=== PATIENT | female | born 1995 | race Hispanic/Latino ===

== ENCOUNTER 2016-05-07 10:05 | Emergency (ER) | payer OTHER ==
[~2016-05-07] VITALS: Ht 165.1 cm; Wt 111.6 kg
[~2016-05-07 10:05] MED LIST: ALBUTEROL2.5 MG/3 M INH/SOL; AUGMENTIN 875 M1 TAB PO; DICLOFENAC SODI75 M2 PO; FLOVENT HFA10.6 GM INH; HYDROCORTISONE120 GM TOP; KEPPRA 500MG T500 MG PO; MOTRIN 800MG T800 MG PO; NAPROSYN500 M1 PO; OVCON PO; PERCOCET 325 MG1 TA2 PO; PNV PRENATAL PL1 TAB PO; PRENATAL1 TA2 PO; PROVENTIL0.09 MG/A1 INH; PSEUDOEPHEDRINE60 MG PO
[2016-05-07 10:11] VITALS: BP 133/78
--- NOTE | 2016-05-07 10:15 | ED GI/GU/ABDOMINAL COMPLAINT ---
History of Present Illness General Chief Complaint: Abdominal Pain/Flank Pain Stated Complaint: ABD PAIN, ? Source: patient Exam Limitations: no limitations Vital Signs & Intake/Output Vital Signs & Intake/Output Vital Signs Date Time Temp Pulse Resp B/P Pulse O2 O2 Flow FiO2 Ox Delivery Rate 05/07 1039 99 Room Air 05/07 1011 96.9 96 18 133/78 97 Room Air Room Air Allergies Coded Allergies: lamotrigine (Intermediate, RASH 07/30/15) cat dander (ITCHY EYES 10/05/15) dog dander (ITCHY EYES 10/05/15) shellfish derived (RED AND FACIAL SWELLING, CAN STILL BREATHE 10/05/15) Reconcile Medications Albuterol Sulfate 2.5 MG/3 ML VIAL.NEB 1 Vial INH/OLYA Q4P PRN ASTHMA Diclofenac Sodium 75 MG TABLET.DR 1 TAB PO BID PRN PAIN Fluticasone Propionate (Flovent Hfa) 10.6 GM AER.W.ADAP 2 PUF INH BID ASTHMA Levetiracetam (Keppra 500MG Tab) 500 MG TAB 1,000 MG PO 0800,2200 SEIZURES Pseudoephedrine HCl 60 MG TABLET 1 TAB PO TID PRN NASAL CONGESTION Triage Note: TRIAGE: 20 Y/O FEMALE PRESENTS C/O ? AND 3/10 TWISTING MID-ABDOMINAL PAIN X1 WEEK. REPORTS TOOK 2 NEGATIVE TESTS AT HOME. REPORTS THAT WITH LAST , "I HAD 2 NEGATIVE TESTS ADN I WAS STILL . IT FEELS LIKE THERE'S SOMETHING IN THERE MOVING, BUT I CAN'T PUT MY FINGER ON WHAT IT IS." Triage Nurses Notes Reviewed? yes ? N Is pt currently ? No HPI: 20-year-old female arrived to triage to room 4 for evaluation of abdominal pain. She reports that the pain started about 2 weeks ago on specific context. Twisting sensation in her abdomen that his very intermittent. She reports that she feels it more when she is laying down flat. Some nausea intermittently but no vomiting or diarrhea. She denies fever or chills. Her last meal was last night along with her last bowel movement which she reports has been normal. She has been eating and drinking well. Her last menses was 2 weeks before Nona. She denies any vaginal bleeding or discharge. She denies any urinary symptoms. She is sexually active with one partner and her first child is 1 years old at this time. She believes she might be despite 2 negative tests at home. She does not have any abdominal pain at this time Past History Travel History Traveled to [place] past 21 day No Medical History Any Pertinent Medical History? see below for history Neurological: EPILEPSY EENT: NONE Cardiovascular: NONE Respiratory: asthma Gastrointestinal: NONE Hepatic: NONE Renal: NONE Musculoskeletal: ECZEMA Psychiatric: NONE Endocrine: NONE Blood Disorders: NONE Cancer(s): NONE TECHNICAL SUPPORT ENGINEER/Reproductive: NONE Other Medical Hx: Surgical History Surgical History: Psychosocial History Who do you live with Other (see notes) What is your primary language Lithuanian Tobacco Use: Never used ETOH Use: denies use Illicit Drug Use: denies illicit drug use Family History Hx Contributory? No Review of Systems Review of Systems Constitutional: Reports: no symptoms. EENTM: Reports: no symptoms. Respiratory: Reports: no symptoms. Cardiovascular: Reports: no symptoms. GI: Reports: abdominal pain, nausea. Genitourinary: Reports: no symptoms. Musculoskeletal: Reports: no symptoms. Skin: Reports: no symptoms. Neurological/Psychological: Reports: no symptoms. Hematologic/Endocrine: Reports: no symptoms. Immunologic/Allergic: Reports: no symptoms. All Other Systems: Reviewed and Negative Physical Exam Physical Exam General Appearance: well developed/nourished, no apparent distress, alert, awake , comfortable Head: atraumatic, normal appearance Eyes: Bilateral: normal appearance, PERRL, EOMI. Neck: normal inspection, supple, full range of motion Respiratory: normal breath sounds, chest non-tender, no respiratory distress Cardiovascular: regular rate/rhythm, normal peripheral pulses Peripheral Pulses: 2+ radial (R), 2+ radial (L) Gastrointestinal: normal bowel sounds, soft, non-tender Back: normal inspection, normal range of motion Extremities: normal range of motion Neurologic/Psych: no motor/sensory deficits, awake, alert, oriented x 3, normal gait, normal mood/affect Skin: intact, normal color, warm/dry Core Measures ACS in differential dx? No Severe Sepsis Present: No Septic Shock Present: No Progress Differential Diagnosis: UTI/pyelo, Plan of Care: Orders Procedure Date/time Status CULTURE,URINE 05/07 1015 Active URINALYSIS 05/07 1015 Complete LIPASE 05/07 1015 Complete HUMAN BETA HCG SCREEN 05/07 1015 Complete COMPREHENSIVE METABOLIC PANEL 05/07 1015 Complete CBC WITHOUT DIFFERENTIAL 05/07 1015 Complete AMYLASE 05/07 1015 Complete Laboratory Tests 05/07/16 1035: Anion Gap 13, Estimated GFR > 60, BUN/Creatinine Ratio 15.0, Glucose 84, Calcium 9.1, Total Bilirubin 0.7, AST 36, ALT 54 H, Alkaline Phosphatase 57, Total Protein 7.5, Albumin 4.0, Globulin 3.5, Albumin/Globulin Ratio 1.1, Amylase < 30 L, Lipase 38, Total Beta HCG NEGATIVE, CBC w Diff NO MAN DIFF REQ, RBC 4.55, MCV 77.3 L, MCH 25.7 L, RDW 16.0 H, MPV 9.3, Gran % 59.1, Lymphocytes % 24.8, Monocytes % 11.2 H, Eosinophils % 4.0, Basophils % 0.9, Absolute Granulocytes 5.1, Absolute Lymphocytes 2.1, Absolute Monocytes 1.0 H, Absolute Eosinophils 0.3, Absolute Basophils 0.1, PUBS MCHC 33.3, Urinalysis MOD H, Urine Color YEL, Urine Clarity HAZY H, Urine pH 6.0, Ur Specific Hudson 1.020, Urine Protein NEG, Urine Ketones NEG, Urine Nitrite NEG, Urine Bilirubin NEG, Urine Urobilinogen 0.2, Ur Leukocyte Esterase SMALL H, Ur Microscopic SEDIMENT EXAMINED, Urine WBC 1-3 H, Ur Epithelial Cells MANY H, Urine Hemoglobin NEG, Urine Glucose NEG Microbiology 05/07 1035 URINE ROUT: Urine Culture - RECD Initial ED EKG: none Comments: Well-appearing nontoxic 20-year-old female with no abdominal pain no nausea no vomiting no diarrhea eating and drinking well, no fever or chills not no signs of infection. She will follow up with Dr. Jaramillo on this week. Case discussed with Dr. Rosario Departure Departure Time of Disposition: 113 Disposition: HOME OR SELF CARE Condition: Stable Clinical Impression Primary Impression: Abdominal pain Qualifiers: Abdominal location: generalized Qualified Code: R10.84 - Generalized abdominal pain Referrals: THELMA JARAMILLO MD (PCP/Family) Additional Instructions: Please follow up with Dr. JARAMILLO this week. Return to the emergency department for any worsening or concerning symptoms. Return of abdominal pain, nausea, vomiting, diarrhea, fever or chills. Departure Forms: Customer Survey General Discharge Information
[2016-05-07 10:52] LABS: ABSOLUTE BASOPHIL COUNT 0.1 /CUMM (0.0-0.2); ABSOLUTE EOSINOPHIL COUNT 0.3 /CUMM (0.0-0.7); ABSOLUTE GRANULOCYTE CT 5.1 /CUMM (1.4-6.5); ABSOLUTE LYMPH COUNT 2.1 /CUMM (1.2-3.4); BASOPHIL % 0.9 % (0.0-2.0); GRANULOCYTE % 59.1 % (42.2-75.2); HEMATOCRIT 35.2 % (37-47); MEAN CORPUSCULAR HGB 25.7 PG (27.0-31.0); MEAN CORPUSCULAR HGB CONC 33.3 G/DL (33.0-37.0); MEAN CORPUSCULAR VOLUME 77.3 FL (81.0-99.0); MEAN PLATELET VOLUME 9.3 FL (7.4-10.4); PLATELET COUNT 269 /CUMM (130-400); RED BLOOD CELL CT 4.55 /CUMM (4.20-5.40); WHITE BLOOD CELL COUNT 8.6 /CUMM (4.8-10.8)
== END 2016-05-07 11:46 ==
LOC: ERH 10:05
PROVIDERS: Nurse Practitioner Family
DX: R10.9 Unspecified abdominal pain (principal)
CPT/HCPCS: 81001; 87086

== ENCOUNTER 2016-05-25 18:32 | Emergency (ER) | payer OTHER ==
[~2016-05-25] VITALS: Ht 165.1 cm; Wt 99.8 kg
[2016-05-25 18:55] VITALS: BP 131/73
--- NOTE | 2016-05-25 19:30 | ED THROAT/DENTAL COMPLAINT ---
History of Present Illness General Chief Complaint: General Adult Stated Complaint: SORE THROAT DAVIS DIZZINESS HX SEIZURES Source: patient, family, old records Exam Limitations: no limitations Vital Signs & Intake/Output Vital Signs & Intake/Output Vital Signs Date Time Temp Pulse Resp B/P Pulse O2 O2 Flow FiO2 Ox Delivery Rate 05/25 1950 100 Room Air 05/25 1855 98.0 117 20 131/73 98 Room Air Room Air Allergies Coded Allergies: lamotrigine (Intermediate, RASH 07/30/15) cat dander (ITCHY EYES 10/05/15) dog dander (ITCHY EYES 10/05/15) shellfish derived (RED AND FACIAL SWELLING, CAN STILL BREATHE 10/05/15) Reconcile Medications Albuterol Sulfate 2.5 MG/3 ML VIAL.NEB 1 Vial INH/OLYA Q4P PRN ASTHMA Amoxicillin/Potassium Clav (Augmentin 875-125 Tablet) 875 MG-125 MG TABLET 1 TAB PO BID STREP PHARYNGITIS Diclofenac Sodium 75 MG TABLET.DR 1 TAB PO BID PRN PAIN Fluticasone Propionate (Flovent Hfa) 10.6 GM AER.W.ADAP 2 PUF INH BID ASTHMA Ibuprofen 800 MG TABLET 1 TAB PO TID PAIN Levetiracetam (Keppra 500MG Tab) 500 MG TAB 1,000 MG PO 0800,2200 SEIZURES Pseudoephedrine HCl 60 MG TABLET 1 TAB PO TID PRN NASAL CONGESTION Triage Note: PT TO ED WITH C/O SORE THROAT X 2 DAYS, TAKING LIQUIDS OK, "HURTS WHEN I EAT". Triage Nurses Notes Reviewed? yes Onset: Abrupt Duration: day(s): (2), constant Timing: recent history Injury Environment: home Severity: moderate Severity Numbers: 5 No Modifying Factors: none Associated Symptoms: DENIES : No Patient currently breastfeeds: No HPI: 20-year-old female with history of epilepsy on Keppra presents emergency room for evaluation complaining with sore throat for the past 2 days worse with swallowing associated with subjective chills fevers for which she is not taken any medication. She denies any recent dental work no cough congestion shortness of breath chest pain nausea vomiting or diarrhea. No modifying factors or associated symptoms otherwise (PETEY DUPREE,MARTÍNEZ) Past History Travel History Traveled to [place] past 21 day No Medical History Any Pertinent Medical History? see below for history Neurological: EPILEPSY EENT: NONE Cardiovascular: NONE Respiratory: asthma Gastrointestinal: NONE Hepatic: NONE Renal: NONE Musculoskeletal: ECZEMA Psychiatric: NONE Endocrine: NONE Blood Disorders: NONE Cancer(s): NONE PHARMACEUTICAL SALES/Reproductive: NONE Other Medical Hx: Surgical History Surgical History: Psychosocial History Who do you live with Other (see notes) What is your primary language Hungarian Tobacco Use: Never used ETOH Use: denies use Illicit Drug Use: denies illicit drug use Family History Hx Contributory? No (MARTÍNEZ BO) Review of Systems Review of Systems Constitutional: Reports: see HPI. All Other Systems: Reviewed and Negative Comments Review of systems: See HPI, All other systems negative. Constitutional,chills no fever, no malaise HEENT: No visual changes sore throat no congestion Cardiovascular: No chest pain , no palpitation Skin, no jaundice no rashes, no change in skin Respiratory: No dyspnea no cough no sputum GI: No nausea no vomiting, no diarrhea, : No dysuria Muscle skeletal: No joint pain, no joint swelling, no back pain, no neck pain, Neurologic: No numbness no headache Psych: No stress Heme/endocrine: No bruising no bleeding IMMUNO: NO LYMPHADENOPATHY (MARTÍNEZ BO) Physical Exam Physical Exam General Appearance: well developed/nourished, no apparent distress, alert, awake Mouth/Throat: PHARYNX ERYTHEMA Comments: Well-developed well-nourished patient in no apparent distress. Head/Face: Atraumatic, no maxillary/frontal sinus tenderness, no facial swelling Eyes: PERRL, EOMI, no conjunctival injection. No nystagmus Ear:External auditory canal and Tympanic membranes clear, no erythema, no FB. Nose: atraumatic.Normal inspection: No bleeding, no septal hematoma Throat: Moist mucous membranes.pharynx is erythematous no exudate no trismus. No stridor/drooling or assymetry. No swelling or edema. Neck: Supple, no lymphadenopathy, FROM Back: FROM, Nontender Cardiovascular: Regular rate and rhythms no murmurs rubs Respiratory: No respiratory distress. Patient speaking in full complete sentences. Breath sounds clear to auscultation bilaterally: NO W/R/R Extremities: full range of motion Neuro: Alert and oriented x3 Skin: Warm & dry;No appreciable rash on exposed skin Psych: Mood affect normal, normal memory normal judgment. Core Measures ACS in differential dx? No Severe Sepsis Present: No Septic Shock Present: No (MARTÍNEZ BO) Progress Differential Diagnosis: epiglottitis, Ludwigs angina, odontogenic abscess, alysia- tonsillar abscess, strep pharyngitis, uri VIRAL SYNDROME INFLUENZA Plan of Care: Orders Procedure Date/time Status THROAT CULTURE W/QUICK STREP 05/25 1856 Complete Discussed with the patient her flu swab results she is nontoxic appearing appears in no apparent distress speaking in full complete sentences NO drooling discussed with her need for close follow-up with her primary care physician prescription for Augmentin provided, answered all her questions she feels comfortable this plan (MARTÍNEZ BO) Departure Departure Time of Disposition: 1938 Disposition: HOME OR SELF CARE Condition: Stable Clinical Impression Primary Impression: Strep pharyngitis Referrals: THELMA WAITE MD (PCP/Family) Additional Instructions: Augmentin as directed ibuprofen as needed for pain drink plenty of fluids these prescriptions were sent to [facility] pharmacy Departure Forms: Customer Survey General Discharge Information Prescriptions: Current Visit Scripts Amoxicillin/Potassium Clav (Augmentin 875-125 Tablet) 1 TAB PO BID #14 TAB Ibuprofen 1 TAB PO TID #30 TAB (MARTÍNEZ BO) PA/BRUSH MAKER Co-Sign Statement Statement: ED Attending supervision documentation- [] I saw and evaluated the patient. I have also reviewed all the pertinent lab results and diagnostic results. I agree with the findings and the plan of care as documented in the PA's/BRUSH MAKER's documentation. [X] I have reviewed the ED Record and agree with the PA's/BRUSH MAKER's documentation. [] Additions or exceptions (if any) to the PAs/BRUSH MAKER's note and plan are summarized below: [] (ILA GODFREY,CARYN)
[2016-05-25] MEDS ORDERED: IBUPROFEN800 M1 PO (19:40)
[2016-05-25] MEDS ORDERED: AUGMENTIN 875-1 EACH PO (19:40)
== END 2016-05-25 19:52 ==
LOC: ERH 18:32
DX: J02.0 Streptococcal pharyngitis (principal)

== ENCOUNTER 2016-09-14 10:51 | Emergency (ER) | payer OTHER ==
[~2016-09-14] VITALS: Ht 165.1 cm; Wt 107.5 kg
[~2016-09-14 10:51] MED LIST changes: +AUGMENTIN 875-1 EACH PO; +IBUPROFEN800 M1 PO
--- NOTE | 2016-09-14 11:30 | ED GI/GU/ABDOMINAL COMPLAINT ---
History of Present Illness General Chief Complaint: Female Urogenital Problems Stated Complaint: HEAVY VAG BLEEDING/CRAMPS S/P ABORATION SAT Source: patient Exam Limitations: no limitations Vital Signs & Intake/Output Vital Signs & Intake/Output Vital Signs Date Time Temp Pulse Resp B/P B/P Pulse O2 O2 Flow FiO2 Mean Ox Delivery Rate 09/14 1305 98.0 80 16 135/64 99 Room Air 09/14 1106 97.9 84 18 146/87 100 Room Air Allergies Coded Allergies: lamotrigine (Intermediate, RASH 07/30/15) cat dander (ITCHY EYES 10/05/15) dog dander (ITCHY EYES 10/05/15) shellfish derived (RED AND FACIAL SWELLING, CAN STILL BREATHE 10/05/15) Reconcile Medications Albuterol Sulfate 2.5 MG/3 ML VIAL.NEB 1 Vial INH/OLYA Q4P PRN ASTHMA Amoxicillin/Potassium Clav (Augmentin 875-125 Tablet) 875 MG-125 MG TABLET 1 TAB PO BID STREP PHARYNGITIS Diclofenac Sodium 75 MG TABLET.DR 1 TAB PO BID PRN PAIN Fluticasone Propionate (Flovent Hfa) 10.6 GM AER.W.ADAP 2 PUF INH BID ASTHMA Ibuprofen 800 MG TABLET 1 TAB PO TID PAIN Levetiracetam (Keppra 500MG Tab) 500 MG TAB 1,000 MG PO 0800,2200 SEIZURES Pseudoephedrine HCl 60 MG TABLET 1 TAB PO TID PRN NASAL CONGESTION Triage Note: PT TO ED S/P ON MONDAY, NOW C/O HEAVY VAG BLEEDING, REPORTING 1-2 PADS AN HOUR SINCE PROCEDURE. PT REPORTING SHE WAS 7 WEEKS P/T PROCEDURE. Triage Nurses Notes Reviewed? yes ? y Is pt currently ? No Onset: Gradual Duration: day(s): (4) Timing: no prior history Quality/Severity: cramping Severity Numbers: 7 Location: suprapubic Radiation: no radiation Activities at Onset: none Prior Abdominal Problems: none Sexually Active: Yes Last Time You Were Sexual: less than 2 months ago Sexual Orientation: Heterosexual Use of Protection: No HPI: Patient is a 21-year-old female presenting to the emergency department with chief complaint of lower abdominal cramping, heavy vaginal bleeding has been going on for the past 4 days after an . She reports that [facility] was [facility] in [place] and had a D&C done on Monday. She reports that they did not tell her what to expect afterwards that she was unsure and Monday come in for evaluation today. She reports that she is going through 2- 3 pads a day since the bleeding started. She has not been passing any clots. She reports mild lightheadedness is worse with positional changes. No nausea or vomiting. Denies taking anything to help with her abdominal cramping. Denies any urinary frequency urgency or dysuria. No history of abortions in the past. (SUDARSHAN SONG) Past History Travel History Traveled to [place] past 21 day No Medical History Any Pertinent Medical History? see below for history Neurological: EPILEPSY EENT: NONE Cardiovascular: NONE Respiratory: asthma Gastrointestinal: NONE Hepatic: NONE Renal: NONE Musculoskeletal: ECZEMA Psychiatric: NONE Endocrine: NONE Blood Disorders: NONE Cancer(s): NONE SERVICE DELIVERY SUPERVISOR/Reproductive: NONE Other Medical Hx: Surgical History Surgical History: Psychosocial History Who do you live with Other (see notes) What is your primary language Slovak Tobacco Use: Never used ETOH Use: denies use Illicit Drug Use: denies illicit drug use Family History Hx Contributory? No (SUDARSHAN SONG) Review of Systems Review of Systems Constitutional: Reports: no symptoms. Comments Review of systems: See HPI, All other systems negative. Constitutional, no chills fever or weight loss HEENT: No visual changes no sore throat no congestion Cardiovascular: No chest pain ,palpitation , orthopnea or ankle swelling Skin, no jaundice no rashes Respiratory: No dyspnea cough sputum or hemoptysis GI: No nausea no vomiting : No dysuria No hematuria Muscle skeletal: no back pain, no neck pain, Neurologic: No numbness no confusion Psych: No stress anxiety or depression,. Heme/endocrine: No hx of bruising no bleeding no polyuria or polydipsia Immunology: No splenectomy or history of AIDS (SUDARSHAN SONG) Physical Exam Physical Exam General Appearance: well developed/nourished, no apparent distress, alert, awake , comfortable, obese Gastrointestinal: normal bowel sounds, soft, tenderness Comments: Well-developed well-nourished person in no acute distress HEENT: No signs of pallor to palpable conjunctiva. Pupils equally round and reactive to light and accommodation. Nose is atraumatic. Neck: Normal inspection Back: Nontender Cardiovascular: Regular rate and rhythms no murmurs rubs or gallops, normal JVP Respiratory: Chest nontender. No respiratory distress.breath sounds clear to auscultation bilaterally Abdomen: Soft, obese, mildly tender to palpation in the suprapubic region bilaterally. No rebound or guarding. Nontender nondistended, no appreciable organomegaly. Normal bowel sounds. No ascites pelvic: Mild amount of blood in the vaginal canal, no clots visualized. Cervical os appears slightly opened. No cervical motion tenderness. UNABLE TO PALPATE ADENXAL MASS BILATERALLY, LIKELY DUE TO BODY HABITUS. Extremity: No edema Neuro: Alert oriented x3 Skin: No appreciable rash on exposed skin, skin is warm and dry. Psych: Mood and affect is normal, memory and judgment is normal. Core Measures ACS in differential dx? No Severe Sepsis Present: No Septic Shock Present: No (CHANTEL DUPREE,SUDARSHAN) Progress Differential Diagnosis: gastritis, UTI/pyelo, dysmenorrhea, retained products of conception, anemia Plan of Care: Orders Procedure Date/time Status MISTAKE 09/14 1307 Active URINALYSIS 09/14 1130 Active HUMAN BETA HCG TITRE 09/14 1129 Complete COMPREHENSIVE METABOLIC PANEL 09/14 1129 Complete CBC WITHOUT DIFFERENTIAL 09/14 1129 Complete TYPE & SCREEN (NOT X-MATCH) 09/14 1129 Complete Laboratory Tests 09/14/16 1145: Anion Gap 10, Estimated GFR > 60, BUN/Creatinine Ratio 14.3, Glucose 97, Calcium 9.1, Total Bilirubin 0.4, AST 26, ALT 45, Alkaline Phosphatase 54, Total Protein 7.3, Albumin 3.9, Globulin 3.4, Albumin/Globulin Ratio 1.1, Beta HCG, Quant 631.1, CBC w Diff NO MAN DIFF REQ, RBC 4.80, MCV 76.3 L, MCH 25.2 L, RDW 15.5 H, MPV 9.3, Gran % 63.3, Lymphocytes % 22.6, Monocytes % 9.4 H, Eosinophils % 4.3, Basophils % 0.4, Absolute Granulocytes 5.3, Absolute Lymphocytes 1.9, Absolute Monocytes 0.8 H, Absolute Eosinophils 0.4, Absolute Basophils 0, PUBS MCHC 33.0 Diagnostic Imaging: Viewed by Me: Ultrasound. Discussed w/RAD: Ultrasound. Radiology Impression: TIENT: LEEANNE GREENE PRESENT AGE: 21 PATIENT ACCOUNT NO: [id number] : 94 LOCATION: [facility] ORDERING PHYSICIAN: SUDARSHAN DUPREE SERVICE DATE: 09/14/16 EXAM TYPE: US - US-TRANSVAGINAL EXAMINATION: ULTRASOUND OF THE PELVIS CLINICAL INFORMATION: 21- year-old female with recent history of , presented with continued bleeding. COMPARISON: None. TECHNIQUE: Transabdominal and transvaginal pelvic ultrasound. FINDINGS: The uterus is normal in size and appearance, measuring 8.1 x 4.5 x 6.0 cm longitudinally, anteroposteriorly and transversely. The endometrial stripe is heterogeneous, shows mixed echogenicity, measures approximately 1.5 cm at its maximum dimension. There is no definite abnormal increased flow identified within the endometrium. The cervical length measures 2.7 cm. No focal myometrial mass is seen. Given the recent history of , the endometrial finding may represent changes secondary to blood clot within the endometrial cavity, endometritis, retained product of conception, gestational trophoblastic disease, etc. Further differentiation cannot be made based on this imaging appearance alone. There is no definite endometrial cavity fluid collection visualized. The ovaries bilaterally are visualized with the right ovary measuring 5.2 x 2.7 x 3.5 cm, volume of 26.4 mL and the left ovary measuring 5.0 x 2.3 x 2.0 cm, volume of 11.8 mL. Incidental note is made of a 1.1 cm maximum dimension dominant follicle within the left ovary. An incidental note is made of a unilocular large cystic mass, seen within the lower part of the pelvis superior to the uterus, and the urinary bladder, extending towards the right adnexal region, measures approximately 7.9 x 7.7 x 9.2 cm. A transvaginal study was performed in addition to the transabdominal study which did not yield an adequate examination of the uterus and ovaries due to superimposed distended gas-filled loops of bowel. IMPRESSION: 1. Heterogeneous, thickened appearance of the endometrium, nonspecific in appearance however, possible differential diagnostic consideration is given as above. 2. Bilateral morphologically normal-appearing ovaries. 3. Unilocular large cystic mass is noted within the right adnexal region extending superiorly, measures 9.2 cm at its maximum dimension, of uncertain etiology. DICTATED BY: ZACH PEGUERO MD DATE/TIME DICTATED:09/14/161250 DIRECTOR INDEX:BO DATE/TIME TRANSCRIBED:09/14/161250 CONFIDENTIAL, DO NOT COPY WITHOUT APPROPRIATE AUTHORIZATION. <Electronically signed in Other Vendor System> SIGNED BY: ZACH PEGUERO MD 09/14/16 1331 Initial ED EKG: none Comments: Spoke with Dr. Cohen regarding ultrasound findings. They will follow-up with her in the office. Patient was given a lab slept to recheck her hCG titer on Monday. She'll return for any worsening symptoms or concerns. D/W DR ALFORD AND HE AGREES WITH PLAN. (SUDARSHAN SONG) Departure Departure Time of Disposition: 1353 Disposition: HOME OR SELF CARE Condition: Stable Clinical Impression Primary Impression: Secondary Impressions: Vaginal bleeding Referrals: THELMA WAITE MD (PCP/Family) TREV GODFREY,STEFF Adorno Additional Instructions: Call Dr. Cohen to schedule a follow-up appointment. Increase fluids. Take Tylenol or Motrin as directed for pain. Given a lab slip, make she get repeat lab work done on Monday as instructed. Return for worsening symptoms or concerns. Departure Forms: Customer Survey General Discharge Information (SUDARSHAN SONG) PA/MAINTENANCE SCHEDULER Co-Sign Statement Statement: ED Attending supervision documentation- I saw and evaluated the patient. I have also reviewed all the pertinent lab results and diagnostic results. I agree with the findings and the plan of care as documented in the PA's/MAINTENANCE SCHEDULER's documentation. x I have reviewed the ED Record and agree with the PA's/MAINTENANCE SCHEDULER's documentation. [] Additions or exceptions (if any) to the PAs/MAINTENANCE SCHEDULER's note and plan are summarized below: [] (PRASHANTH GODFREY,PRAVEEN)
[2016-09-14 11:57] LABS: ABSOLUTE BASOPHIL COUNT 0 /CUMM (0.0-0.2); ABSOLUTE EOSINOPHIL COUNT 0.4 /CUMM (0.0-0.7); ABSOLUTE GRANULOCYTE CT 5.3 /CUMM (1.4-6.5); ABSOLUTE LYMPH COUNT 1.9 /CUMM (1.2-3.4); ABSOLUTE MONOCYTE COUNT 0.8 /CUMM (0.10-0.60); BASOPHIL % 0.4 % (0.0-2.0); EOSINOPHIL % 4.3 % (0-5); GRANULOCYTE % 63.3 % (42.2-75.2); HEMATOCRIT 36.6 % (37-47); MEAN CORPUSCULAR HGB 25.2 PG (27.0-31.0); MEAN CORPUSCULAR VOLUME 76.3 FL (81.0-99.0); MEAN PLATELET VOLUME 9.3 FL (7.4-10.4); PLATELET COUNT 252 /CUMM (130-400); RBC DISTRIBUTION WIDTH 15.5 % (11.5-14.5); WHITE BLOOD CELL COUNT 8.3 /CUMM (4.8-10.8)
[2016-09-14 13:05] VITALS: BP 135/64
--- NOTE | 2016-09-14 13:31 | ULTRASOUND REPORT ---
EXAMINATION: ULTRASOUND OF THE PELVIS CLINICAL INFORMATION: 21-year-old female with recent history of , presented with continued bleeding. COMPARISON: None. TECHNIQUE: Transabdominal and transvaginal pelvic ultrasound. FINDINGS: The uterus is normal in size and appearance, measuring 8.1 x 4.5 x 6.0 cm longitudinally, anteroposteriorly and transversely. The endometrial stripe is heterogeneous, shows mixed echogenicity, measures approximately 1.5 cm at its maximum dimension. There is no definite abnormal increased flow identified within the endometrium. The cervical length measures 2.7 cm. No focal myometrial mass is seen. Given the recent history of , the endometrial finding may represent changes secondary to blood clot within the endometrial cavity, endometritis, retained product of conception, gestational trophoblastic disease, etc. Further differentiation cannot be made based on this imaging appearance alone. There is no definite endometrial cavity fluid collection visualized. The ovaries bilaterally are visualized with the right ovary measuring 5.2 x 2.7 x 3.5 cm, volume of 26.4 mL and the left ovary measuring 5.0 x 2.3 x 2.0 cm, volume of 11.8 mL. Incidental note is made of a 1.1 cm maximum dimension dominant follicle within the left ovary. An incidental note is made of a unilocular large cystic mass, seen within the lower part of the pelvis superior to the uterus, and the urinary bladder, extending towards the right adnexal region, measures approximately 7.9 x 7.7 x 9.2 cm. A transvaginal study was performed in addition to the transabdominal study which did not yield an adequate examination of the uterus and ovaries due to superimposed distended gas-filled loops of bowel. IMPRESSION: 1. Heterogeneous, thickened appearance of the endometrium, nonspecific in appearance however, possible differential diagnostic consideration is given as above. 2. Bilateral morphologically normal-appearing ovaries. 3. Unilocular large cystic mass is noted within the right adnexal region extending superiorly, measures 9.2 cm at its maximum dimension, of uncertain etiology.
== END 2016-09-14 14:08 ==
LOC: ERH 10:51
PROVIDERS: Physician Assistant
DX: O03.9 Complete or unspecified spontaneous abortion without complication (principal); N93.9 Abnormal uterine and vaginal bleeding, unspecified